=== PATIENT | male | born 1995 | race African-American/Black ===

== ENCOUNTER 2021-09-18 02:33 | Emergency (ER) | payer OTHER ==
[2021-09-18 02:40] VITALS: BP 126/73
--- NOTE | 2021-09-18 03:39 | ED Physician Documentation ---
PD HPI BACK PAIN - Stated complaint Stated Complaint: LOW BACK PX - Chief complaint Chief Complaint: Back Pain - History obtained from History obtained from: Patient - History of Present Illness Timing - onset: How many days ago (3) Timing - details: Abrupt onset Pain level max: 6 (with movement) Pain level now: 3 Location: Lower Quality: Pain Associated symptoms: No: Fever, Weakness, Numbness, Incontinent of urine, Unable to urinate, Hematuria, Incontinent of stool Worsened by: Movement, Palpation Similar symptoms before: Has not had sx before Recently seen: Not recently seen - Additional information Additional information: c/o sudden onset of pain midline in coccygeal region. pain started 3 days ago while seated, worse with movement and palpation. No h/o similar pain. Review of Systems Constitutional: denies: Fever Musculoskeletal: reports: Back pain (localized to coccygeal area) Neurologic: denies: Focal weakness, Numbness PD PAST MEDICAL HISTORY - Past Medical History Past Medical History: No - Present Medications Home Medications: Ambulatory Orders Medication Instructions Recorded Confirmed cephALEXin [Keflex] 500 mg PO Q6H #28 cap 09/18/21 - Allergies Allergies/Adverse Reactions: Allergies Allergy/AdvReac Type Severity Reaction Status Date / Time No Known Drug Allergies Allergy Verified 09/18/21 02:40 PD ED PE NORMAL - Vitals Vital signs reviewed: Yes - General General: Alert and oriented X 3, No acute distress (NAD at rest, lying on side but appears to have painful discomfort with movement such as sitting up or turning over on other side), Well developed/nourished PD ED PE EXPANDED - Back Back: Other (focal tenderness to palpation at top (cephald-most) midline of gluteal cleft; there is faint, poorly marginated erythema but no fluctuance nor palpable mass. ) PD MEDICAL DECISION MAKING - ED course Complexity details: considered differential, d/w patient ED course: presents with pain and tenderness midline top of gluteal cleft. There is no h/o injury. Location of symptoms and the faint erythema on exam suggest infected pilonidal cyst and he is given doxycycline in ED with rx transmitted to his pharmacy of choice for same. The lack of visible/palpable cyst/abscess is not c/w this diagnosis but deep palpation is limited due to degree of tenderness. Sudden onset would also be atypical. Would also consider coccydynia caused by prolonged sitting without adequate padding, which might become more apparent if this becomes recurrent with such a pattern of situational exacerbation. Departure - Departure Disposition: 01 Home, Self Care Clinical Impression: Coccydynia Condition: Good Instructions: ED Cyst Pilonidal Infec Abx Only Follow-Up: JERRY Espino [Provider Group] Prescriptions: cephALEXin [Keflex] 500 mg PO Q6H #28 cap Comments: A prescription for the antibiotic has been electronically submitted to [facility] in [place]. As we discussed, the diagnosis of infected pilonidal cyst is strictly provisional; the tenderness and the area that is affected are strongly consistent with this diagnosis, but the lack of a visible or palpable swelling is unusual. The symptoms should improve within the next 2-3 days with the anti biotic if the cause is an infected cyst. Discharge Date/Time: 09/18/21 04:33
[2021-09-18] MEDS ORDERED: cephALEXin 250 MG CAPSULE PO STA (04:19)
[2021-09-18] MEDS ORDERED: IBUPROFEN 600 MG TABLET PO STA (04:20)
== END 2021-09-18 04:33 | disposition home or self-care (01) ==
LOC: ED 02:33
DX: M53.3 Sacrococcygeal disorders, not elsewhere classified (principal)
CPT/HCPCS: 99281; 99282; A9270